=== PATIENT | male | born 1970 | race Caucasian/White ===

== ENCOUNTER 2019-08-21 13:18 | Emergency (ER) | payer OTHER ==
[~2019-08-21] VITALS: Ht 175.3 cm; Wt 72.6 kg
[2019-08-21] MEDS ORDERED: FLEXERIL PO (13:54)
[2019-08-21] MEDS ORDERED: MOBIC15 MG PO (13:55)
[2019-08-21] MEDS ORDERED: PREDNISONE 10 M10 MG PO (13:55)
[2019-08-21 14:51] VITALS: BP 125/85
== END 2019-08-21 14:52 | disposition home or self-care (01) ==
LOC: M.ERS 13:18
DX: S39.012A Strain of muscle, fascia and tendon of lower back, initial encounter (principal); Z88.5 Allergy status to narcotic agent; X50.0XXA Overexertion from strenuous movement or load, initial encounter; Y92.89 Other specified places as the place of occurrence of the external cause; Y93.89 Activity, other specified; Y99.8 Other external cause status